=== PATIENT | female | born 1945 | race Caucasian/White ===

== ENCOUNTER 2018-01-10 07:48 | Outpatient (CLI) | payer OTHER ==
[~2018-01-10 07:48] MED LIST: AMLODIPINE BES2.5 MG; AVAPRO75 MG; GLIMEPIRIDE4 MG; HYDROCHLOROTHIA25 MG; METFORMIN HCL500 MG
== END 2018-01-10 07:57 | disposition home or self-care (01) ==
LOC: TOM 07:48
DX: K56.50 Intestinal adhesions [bands], unspecified as to partial versus complete obstruction (principal); K56.699 Other intestinal obstruction unspecified as to partial versus complete obstruction

== ENCOUNTER 2022-08-19 07:03 | Outpatient (CLI) | payer OTHER | END 2022-08-19 07:07 | disposition home or self-care (01) | LOC: TOM 07:03 | DX: D50.9 Iron deficiency anemia, unspecified (principal) ==